=== PATIENT | female | born 1980 | race Caucasian/White ===

== ENCOUNTER 2017-03-29 09:47 | Outpatient (CLI) | payer OTHER ==
--- NOTE | 2017-03-29 12:13 | ULT ---
OBSTETRICAL ULTRASOUND: Date: 03-29-17 History: Evaluate size and dates. Technique: Multiplanar grayscale sonographic imaging of the gravid uterus obtained. FINDINGS: There is a single live intrauterine gestation demonstrating a breach presentation. Cervical length is 5.2 cm. The placenta is located anterior and demonstrates no evidence for previa or abruption. The urinary bladder, stomach, kidneys, four chamber heart, umbilical insertion, and umbilical c ord appear unremarkable. heart rate is 144 beats/minute. Region of the diaphragm appears within normal limits. spine and visualized portions of fe cricket extremities appear within normal limits. The facial structures could not be well assessed o n this examination secondary to positioning. Intracranial contents appear grossly unremarkable. Amniotic fluid index is 12.2 cm. biometry: BPD 4.8 cm 20 weeks 4 days HC 17.6 cm 20 weeks 1 day AC 15.7 cm 20 weeks 6 days FL 3.3 cm 20 weeks 2 days Average age based on ultrasound is 20 weeks 2 days with estimated date of delivery on 08-14-17. Estimated weight is 361 grams, +/- 53 grams. IMPRESSION: Single live intrauterine gestation as above. POS: [facility]
== END 2017-03-29 09:48 | disposition home or self-care (01) ==
LOC: ULT 09:47
PROVIDERS: ATTEND Family Medicine
DX: Z34.92 Encounter for supervision of normal pregnancy, unspecified, second trimester (principal); Z3A.20 20 weeks gestation of pregnancy
CPT/HCPCS: 76805

== ENCOUNTER 2017-08-09 08:27 | Inpatient (IN) | payer OTHER ==
[~2017-08-09 08:27] MED LIST: Dexamethasone 20 MG/5 ML VIAL ONE; Ondansetron HCl/PF 4 MG/2 ML Vial ONE; PHENYLEPHRINE-NS 100 MCG/ML 10 ML SYRINGE ONE; ePHEDrine/0.9% NaCl/PF SYRINGE 50 mg/10 ml ONE
[2017-08-09] MEDS ORDERED: Ondansetron HCl/PF 4 MG/2 ML Vial IVP PRN ×4 (10:23→13:23)
[2017-08-09] MEDS ORDERED: Promethazine HCl 25 MG/ML VIAL IM PRN ×3 (10:23→13:23)
[2017-08-09] MEDS ORDERED: CEFAZOLIN/Water 2 GM/20 ML SYRINGE SLOW IVP SCH ×2 (10:30→11:30)
[2017-08-09] MEDS ORDERED: Acetaminophen 325 MG TAB PO PRN (10:30)
[2017-08-09] MEDS ORDERED: Lactated Ringer's 1,000 ML IV SCH ×3 (10:30→11:30)
[2017-08-09] MEDS ORDERED: diphenhydrAMINE 25 MG CAP PO PRN (10:30)
[2017-08-09] MEDS ORDERED: Acetaminophen/Codeine 30-300mg Tablet PO PRN (10:30)
[2017-08-09] MEDS ORDERED: Lanolin Ointment 7 GM TUBE TOP PRN (10:30)
[2017-08-09] MEDS ORDERED: Bisacodyl 10 MG SUPP PR PRN (10:30)
[2017-08-09] MEDS ORDERED: Bicitra 30 ML UDCUP PO SCH ×2 (10:30→11:30)
[2017-08-09] MEDS ORDERED: HYDROcodone/Acetaminophen 5/325 mg Tablet PO PRN (10:30)
[2017-08-09 10:52] VITALS: BMI 37.3
[2017-08-09 12:31] LABS: Mean Corpuscular HGB CONC 31.9 g/dL (32.0-36.0); Mean Corpuscular Hemoglobin 27.6 pg (27.0-31.0); Mean Corpuscular Volume 86.6 fl (81.0-99.0); Mean Platelet Volume 9.4 fL (7.4-10.4); Platelet Count 283 thou/uL (130-400); RBC Distribution Width 12.3 % (11.5-14.5); Red Blood Cell (RBC) Count 4.33 mill/uL (4.20-5.40); White Blood Cell (WBC) Count 12.9 thou/uL (4.8-10.8)
[2017-08-09] MEDS ORDERED: Morphine PF 1 MG/ML SYR ONE (12:35)
[2017-08-09] MEDS ORDERED: Fentanyl 100 MCG/2 ML VIAL ONE (12:35)
[2017-08-09] MEDS ORDERED: ePHEDrine/0.9% NaCl/PF SYRINGE 50 mg/10 ml ONE (12:36)
[2017-08-09] MEDS ORDERED: Oxytocin 10 UNITS/ML VIAL ONE (12:36)
[2017-08-09] MEDS ORDERED: PHENYLEPHRINE-NS 100 MCG/ML 10 ML SYRINGE ONE (12:36)
[2017-08-09] MEDS ORDERED: Dexamethasone 4 mg/ml Vial ONE (12:36)
[2017-08-09] MEDS ORDERED: Ondansetron HCl/PF 4 MG/2 ML Vial ONE (12:36)
[2017-08-09] MEDS ORDERED: Lidocaine 1% PF 5 ML VIAL ONE (12:49)
[2017-08-09] MEDS ORDERED: Bupivacaine 0.75% W/DEXTROSE 8.25% 2 ML AMP ONE (12:49)
[2017-08-09] MEDS ORDERED: Naloxone HCl 0.4 mg/ml Vial IVP PRN ×2 (13:23)
[2017-08-09] MEDS ORDERED: Naloxone HCl 0.4 mg/ml Vial IV PRN (13:23)
[2017-08-09] MEDS ORDERED: Promethazine HCl 25 MG SUPP PR PRN (13:23)
[2017-08-09] MEDS ORDERED: diphenhydrAMINE 50 MG/ML VIAL IVP PRN (13:23)
[2017-08-09] MEDS ORDERED: Ketorolac Tromethamine 30 MG/ML VIAL IVP PRN (13:23)
[2017-08-09] MEDS ORDERED: Eucerin (Mineral Oil/Petrolatum,White) 30 gm Jar TOP PRN (13:23)
[2017-08-09] MEDS ORDERED: Morphine 4 MG/ML VIAL IV PRN (13:30)
[2017-08-09] MEDS ORDERED: Communication Order-Pharmacy FS SCH (13:30)
[2017-08-09 13:38] LABS: HBSAg Index 0.21 S/CO (0-0.99); Hep B Surf Ag Non-Reactive S/CO (NonReactive)
[2017-08-09 13:48] LABS: Syphilis Antibody Nonreactive (Nonreactive); Syphilis Antibody Index 0.04 S/CO (<1.00 Non-Reactive)
--- NOTE | 2017-08-09 14:06 | OP ---
DATE OF SURGERY: 08/09/2017 PREOPERATIVE DIAGNOSIS: Term intrauterine with previous section x2 and spontaneou s rupture of membranes. POSTOPERATIVE DIAGNOSES: Term intrauterine with previous section x2 and spontaneo us rupture of membranes, status post delivery. PROCEDURE: Repeat low transverse section. SURGEON: Luzma Hernandez M.D. DIABETES CLINICAL MANAGER: Yassine Shepard M.D. ANESTHESIA: Spinal anesthetic. COMPLICATIONS: None. PROCEDURE IN DETAIL: After adequate spinal anesthetic, the patient was placed in supine position. A wedge was placed under her right flank. A Contreras catheter was placed and the abdomen was prepped and draped in the usual sterile technique. A Pfannenstiel incision was made through the old scar. Subc utaneous tissue opened with sharp dissection. Fascia was opened with sharp dissection. Peritoneum o pened with sharp and blunt dissection. It was noted that the abdomen was filled with a gravid uterus . A large Pepe O retractor was placed and a bladder flap was incised inferiorly. A low transverse incision was made on the uterus. Membranes were ruptured. Clear fluid was encountered and a viable male infant was delivered from vertex presentation. Infant breathed and cried spontaneously. Cord was clamped and cut after approximately 30 seconds and infant handed to the care of the Neonat[facility]. The cord blood was obtained and the placenta was delivered manually and appeared intact. The h ysterotomy edges were grasped with ring forceps and an additional ring forceps was used to dilate the cervix. This ring forceps was then taken external to the sterile field. The hysterotomy was closed in continuous fashion using 0 Monocryl. Hemostasis appeared adequate. Few bleeders on the bladder flap were cauterized and the peritoneum was then closed in continuous fashion using 2-0 chromic. Fas efrain was then closed in continuous fashion using 0 Vicryl. Sponge and instrument counts were correct. A 2-0 plain was used to reapproximate the subcutaneous tissue and the skin was closed using alonzo . The patient tolerated the procedure well to go to the recovery room in good condition. Baby is a viable male , weight 8 pounds 3 ounces, Apgars 8 at 1 minute and 9 at 5 minutes, to go to level 1 nursery in good condition. ESTIMATED BLOOD LOSS: 400 mL.
[2017-08-09] MEDS ORDERED: Ketorolac Tromethamine 30 MG/ML VIAL ONE ×2 (15:19→15:21)
[2017-08-09] MEDS: Ketorolac Tromethamine 30 MG/ML VIAL IVP SCH ×2 (15:23→21:35)
[2017-08-09] MEDS: Lactated Ringer's 1,000 ML IV SCH ×2 (16:27→21:35)
[2017-08-09] MEDS: Ferrous Sulfate 325 MG TAB PO SCH (16:27)
[2017-08-09] MEDS: Ibuprofen 800 MG TAB PO SCH ×2 (16:27→22:40)
[2017-08-09] MEDS: Simethicone Chewable 80 MG TAB PO PRN (21:35)
[2017-08-09] MEDS: Docusate Calcium (SURFAK) 240 MG CAP PO SCH (21:35)
[2017-08-10] MEDS ORDERED: Acetaminophen/Codeine 30-300mg Tablet PO PRN (02:00)
[2017-08-10] MEDS: Ketorolac Tromethamine 30 MG/ML VIAL IVP SCH ×4 (03:08→19:23)
[2017-08-10] MEDS: Lactated Ringer's 1,000 ML IV SCH ×3 (04:55→17:37)
[2017-08-10] MEDS: Ibuprofen 800 MG TAB PO SCH ×2 (04:56→17:23)
[2017-08-10 06:00] LABS: Hemoglobin 9.5 g/dL (12.0-16.0); Mean Corpuscular HGB CONC 34.3 g/dL (32.0-36.0); Mean Corpuscular Hemoglobin 29.5 pg (27.0-31.0); Mean Corpuscular Volume 86.1 fl (81.0-99.0); Mean Platelet Volume 8.3 fL (7.4-10.4); Platelet Count 204 thou/uL (130-400); RBC Distribution Width 12.1 % (11.5-14.5); White Blood Cell (WBC) Count 14.4 thou/uL (4.8-10.8)
[2017-08-10] MEDS: Prenatal Vitamin 1 TAB PO SCH (09:33)
[2017-08-10] MEDS: Docusate Calcium (SURFAK) 240 MG CAP PO SCH ×2 (09:33→21:16)
[2017-08-10] MEDS: Ferrous Sulfate 325 MG TAB PO SCH ×2 (09:34→17:23)
[2017-08-10] MEDS: Simethicone Chewable 80 MG TAB PO PRN (21:16)
[2017-08-10] MEDS: HYDROcodone/Acetaminophen 5/325 mg Tablet PO PRN (23:46)
[2017-08-11] MEDS: Ibuprofen 800 MG TAB PO SCH ×2 (01:54→09:05)
[2017-08-11] MEDS: Ketorolac Tromethamine 30 MG/ML VIAL IVP SCH ×2 (01:55→08:27)
[2017-08-11] MEDS: Lactated Ringer's 1,000 ML IV SCH ×2 (05:55→11:05)
[2017-08-11] MEDS: HYDROcodone/Acetaminophen 5/325 mg Tablet PO PRN (08:45)
[2017-08-11] MEDS: Ferrous Sulfate 325 MG TAB PO SCH (08:46)
[2017-08-11] MEDS: Prenatal Vitamin 1 TAB PO SCH (08:46)
[2017-08-11] MEDS: Docusate Calcium (SURFAK) 240 MG CAP PO SCH (08:46)
[2017-08-11 09:24] VITALS: BP 142/69; TEMP 97.7
[2017-08-11] MEDS ORDERED: Ibuprofen 800 MG TAB PO SCH (10:00)
--- NOTE | 2017-08-11 13:42 | ADD-OP ---
DATE OF PROCEDURE: 08/09/2017 PRIMARY SURGEON: Dr. Luzma Hernandez. This documentation is that I was certified first assistant on a repeat for patient Eliana Bailon.
== END 2017-08-11 11:35 | disposition home or self-care (01) | DRG 766 ==
LOC: L&D/OP 08:27 → L&D 09:10 → 3SW 16:05
PROVIDERS: ADMIT Family Medicine; ATTEND Family Medicine
PROC: 10D00Z1 Extraction of Products of Conception, Low, Open Approach (ICD-10-PCS; principal; 2017-08-09)
DX: O34.211 Maternal care for low transverse scar from previous cesarean delivery (principal); Z3A.39 39 weeks gestation of pregnancy; Z37.0 Single live birth; O99.284 Endocrine, nutritional and metabolic diseases complicating childbirth; E03.9 Hypothyroidism, unspecified; Z79.899 Other long term (current) drug therapy; Z79.82 Long term (current) use of aspirin
CPT/HCPCS: 36415; 51702; 85027; 86780; 86850; 86900; 86901; 87340; 99285; A4216; J1100; J1885; J2001; J2270; J2274; J2405; J2590; J3010; J3490

== ENCOUNTER 2021-07-22 17:41 | Inpatient (IN) | payer OTHER, SELFPAY ==
[2021-07-22 17:50] LABS: #Eosinphils 0.2 thou/uL (0.0-0.7); #Monocytes 0.5 thou/uL (0.11-0.59); #Neutrophils 7.7 thou/uL (1.40-6.50); %Basophils 0.3 % (0.0-1.0); %Eosinophils 1.8 % (0.0-10.0); %Lymphocytes 19.4 % (21.0-51.0); %Monocytes 5.1 % (0.0-10.0); %Neutrophils 73.3 % (42.0-75.0); Mean Corpuscular HGB CONC 32.8 g/dL (32.0-36.0); Mean Corpuscular Hemoglobin 31.1 pg (27.0-31.0); Mean Corpuscular Volume 94.8 fL (78.0-98.0); Mean Platelet Volume 7.7 fL (7.4-10.4); Platelet Count 293 thou/uL (130-400); RBC Distribution Width 12.8 % (11.5-14.5); Red Blood Cell (RBC) Count 4.19 mill/uL (4.20-5.40); White Blood Cell (WBC) Count 10.5 thou/uL (4.8-10.8)
[2021-07-22 17:52] LABS: PTT 33.7 sec (22.9-36.1); Prothrombin Time 12.9 sec (12.0-14.7)
[2021-07-22 18:35] LABS: Sodium 136 mmol/L (136-145)
[2021-07-22 18:36] LABS: Carbon Dioxide 20 mmol/L (22-29); Chloride 106 mmol/L (98-107); Potassium 3.3 mmol/L (3.5-5.1)
[2021-07-22 18:37] LABS: Anion Gap 13 mmol/L (10-20); BUN (Urea Nitrogen) 13 mg/dL (7.0-18.7); Bilirubin, Total 0.6 mg/dL (0.2-1.2); Calc. Creatinine Clearance 0 mL/min (70-130); Glucose 120 mg/dL (70-105); Protein, Total 7.7 g/dL (6.0-8.3)
[2021-07-22 18:38] LABS: ALT (SGPT) 18 U/L (8-55); AST (SGOT) 21 U/L (5-34); Albumin 4.4 g/dL (3.5-5.0); Alkaline Phosphatase 67 U/L (40-110); Globulin 3.3 g/dL (2.4-3.5)
[2021-07-22] MEDS ORDERED: Aspirin Chewable 81 MG TAB ONE (18:42)
[2021-07-22 18:56] LABS: CK (CPK) 72 U/L (29-168)
[2021-07-22] MEDS ORDERED: methylPREDNISolone Sod Succ 1 GM in Sodium Chloride 0.9% 250 ML 250 ML IVPB SCH (19:00)
[2021-07-22] MEDS ORDERED: Ondansetron PF 4 MG/2 ML Vial IVP PRN (20:10)
[2021-07-22] MEDS ORDERED: Zolpidem Tartrate 5 MG TAB PO PRN (20:10)
[2021-07-22] MEDS ORDERED: HYDROcodone/Acetaminophen 5/325 mg Tablet PO PRN (20:10)
[2021-07-22] MEDS ORDERED: Potassium Chloride 20 MEQ TAB PO SCH (21:45)
[2021-07-22 22:06] VITALS: BMI 34.8
[2021-07-22] MEDS: methylPREDNISolone Sod Succ/PF 125 MG/2 ML VIAL IVP SCH (23:28)
[2021-07-22] MEDS: Potassium Chloride 20 MEQ in Lactated Ringer's 1,000 ML IV SCH (23:28)
[2021-07-23 00:35] LABS: Bacteria/HPF None Seen HPF (None Seen); Bilirubin Negative (Negative); Blood, Urine Trace (Negative); Clarity Clear (Clear); Glucose, Urine (Dipstick) 200 mg/dL (Negative); Ketone, Urine 20 mg/dL (Negative); Leukocyte Negative Leu/uL (Negative); Nitrite Negative (Negative); Protein, Urine (Dipstick) Negative (Neg-Trace); Specific Gravity, Urine 1.034 (1.002-1.036); Squamous Epithelial 0-3 HPF (0-3); Urobilinogen Normal mg/dL (Less than 2); WBC/HPF 0-3 HPF (0-3)
[2021-07-23 04:37] LABS: #Lymphocytes 0.8 thou/uL (1.20-3.40); #Neutrophils 7.6 thou/uL (1.40-6.50); %Basophils 0.2 % (0.0-1.0); %Eosinophils 0.2 % (0.0-10.0); %Lymphocytes 9.4 % (21.0-51.0); %Monocytes 0.5 % (0.0-10.0); %Neutrophils 89.8 % (42.0-75.0); Hemoglobin 13.6 g/dL (12.0-16.0); Mean Corpuscular HGB CONC 32.9 g/dL (32.0-36.0); Mean Corpuscular Hemoglobin 31.4 pg (27.0-31.0); Mean Corpuscular Volume 95.3 fL (78.0-98.0); Mean Platelet Volume 7.6 fL (7.4-10.4); Platelet Count 314 thou/uL (130-400); RBC Distribution Width 12.7 % (11.5-14.5); Red Blood Cell (RBC) Count 4.34 mill/uL (4.20-5.40); White Blood Cell (WBC) Count 8.5 thou/uL (4.8-10.8)
[2021-07-23 04:48] LABS: ALT (SGPT) 19 U/L (8-55); AST (SGOT) 16 U/L (5-34); Albumin 4.3 g/dL (3.5-5.0); Alkaline Phosphatase 70 U/L (40-110); Anion Gap 12 mmol/L (10-20); BUN (Urea Nitrogen) 10 mg/dL (7.0-18.7); Bilirubin, Total 0.7 mg/dL (0.2-1.2); Calc. Creatinine Clearance 190 mL/min (70-130); Carbon Dioxide 22 mmol/L (22-29); Chloride 106 mmol/L (98-107); Globulin 3.4 g/dL (2.4-3.5); Glucose 176 mg/dL (70-105); Potassium 3.7 mmol/L (3.5-5.1); Protein, Total 7.7 g/dL (6.0-8.3); Sodium 136 mmol/L (136-145)
[2021-07-23] MEDS: methylPREDNISolone Sod Succ/PF 125 MG/2 ML VIAL IVP SCH ×2 (05:43→13:43)
[2021-07-23] MEDS: Enoxaparin Sodium 40 MG/0.4 ML SYRINGE SC SCH (10:02)
[2021-07-23] MEDS ORDERED: SODIUM CHLORIDE 0.9% IVPB SCH (12:15)
[2021-07-23] MEDS ORDERED: METHYLPREDNISOLONE SOD SUCC IVPB SCH (12:15)
[2021-07-23 12:36] LABS: ANA Symphony (Qualitative) Negative (Negative); ANA Symphony (Quantitative) 0.2 Ratio (< 0.7 Negative); EliA RAS New Method **** NEW METHOD ****; dsDNA IgG Antibody 2.1 IU/mL (<10 Negative)
[2021-07-23] MEDS: Potassium Chloride 20 MEQ in Lactated Ringer's 1,000 ML IV SCH (16:01)
[2021-07-23 16:37] LABS: SARS-CoV-2 PCR by NAA Not Detected (NotDetected)
[2021-07-23 17:24] LABS: BHCG - Serum Negative (NEGATIVE); Pregs Control Background? CLEAR/WHITE (CLR/WHITE); Pregs Control Bar Appear? YES (CONTROL BAR)
[2021-07-23] MEDS: Acetaminophen 325 MG TAB PO PRN (20:54)
[2021-07-24 04:36] LABS: Anion Gap 11 mmol/L (10-20); BUN (Urea Nitrogen) 11 mg/dL (7.0-18.7); Calc. Creatinine Clearance 190 mL/min (70-130); Calcium 8.7 mg/dL (7.8-10.44); Carbon Dioxide 24 mmol/L (22-29); Cardiac Risk 3.1 (Less than 4.5); Chloride 109 mmol/L (98-107); Cholesterol 165 mg/dl (< 200 Desired); Glucose 221 mg/dL (70-105); HDL Cholesterol 53 mg/dL (>60 Neg Risk); LDL Cholesterol, Calculated 97 mg/dL; Potassium 4.1 mmol/L (3.5-5.1); Sodium 140 mmol/L (136-145); Triglycerides 74 mg/dL (Less than 150)
[2021-07-24 04:55] LABS: Hemoglobin A1c 5.3 % (4.0-6.0)
[2021-07-24] MEDS: Potassium Chloride 20 MEQ in Lactated Ringer's 1,000 ML IV SCH ×2 (05:44→15:55)
[2021-07-24 07:29] LABS: Hemoglobin 12.4 g/dL (12.0-16.0); Mean Corpuscular HGB CONC 31.3 g/dL (32.0-36.0); Mean Corpuscular Hemoglobin 31.7 pg (27.0-31.0); Mean Platelet Volume 7.7 fL (7.4-10.4); Platelet Count 288 thou/uL (130-400); RBC Distribution Width 13.1 % (11.5-14.5); Red Blood Cell (RBC) Count 3.91 mill/uL (4.20-5.40); White Blood Cell (WBC) Count 21.3 thou/uL (4.8-10.8)
[2021-07-24 07:30] LABS: Band 4 % (5-11); Hypochromia SLIGHT = 6-15 cells (100X) (0-5/hpf); Lymphocytes 6 % (21-51); MDiff Complete? YES; Macrocytosis MODERATE=16-30 cells (100X) (0-5/hpf); Monocytes 3 % (0-10); Neutrophil 87 % (42-75); Ovalocytes SLIGHT = 2-5 cells (100X) (0-1/hpf); Platelet Morphology Comment Appears Adequate; Polychromasia SLIGHT = 2-3 cells (100X) (0-2/hpf)
[2021-07-24] MEDS ORDERED: methylPREDNISolone Sod Succ 1 GM in Sodium Chloride 0.9% 250 ML 250 ML IVPB SCH (09:00)
[2021-07-24] MEDS ORDERED: Aspirin 81 mg Enteric Coated Tablet PO SCH (09:00)
[2021-07-24] MEDS: Enoxaparin Sodium 40 MG/0.4 ML SYRINGE SC SCH (09:09)
[2021-07-24] MEDS: Acetaminophen 325 MG TAB PO PRN (09:16)
[2021-07-24 15:50] VITALS: BP 116/58; TEMP 98.4
== END 2021-07-24 15:55 | disposition home or self-care (01) | DRG 103 ==
LOC: ERS 17:41 → 2NO 20:47 → OBSVTOIN 07-23 15:30
PROVIDERS: ADMIT Internal Medicine; ATTEND Internal Medicine
DX: I67.7 Cerebral arteritis, not elsewhere classified (principal); G45.9 Transient cerebral ischemic attack, unspecified; Z20.822 Contact with and (suspected) exposure to COVID-19; L40.50 Arthropathic psoriasis, unspecified; K21.9 Gastro-esophageal reflux disease without esophagitis; E87.6 Hypokalemia; Z79.890 Hormone replacement therapy; Z79.82 Long term (current) use of aspirin; Z79.899 Other long term (current) drug therapy
CPT/HCPCS: 36415; 70450; 70496; 70498; 70553; 80048; 80053; 80061; 81003; 81015; 82550; 83036; 83520; 83735; 84443; 84484; 84703; 85025; 85610; 85730; 86038; 86225; 93005; 93306; J1650; J2930; J3480; J7050; J7120; U0003; U0005

== ENCOUNTER 2021-07-27 08:16 | Inpatient (IN) | payer SELFPAY ==
[2021-07-27 08:43] LABS: #Basophils 0.1 thou/uL (0.0-0.2); #Eosinphils 0.2 thou/uL (0.0-0.7); #Lymphocytes 2.5 thou/uL (1.20-3.40); #Monocytes 0.6 thou/uL (0.11-0.59); #Neutrophils 6.1 thou/uL (1.40-6.50); %Basophils 0.9 % (0.0-1.0); %Eosinophils 1.9 % (0.0-10.0); %Lymphocytes 26.5 % (21.0-51.0); %Monocytes 6.6 % (0.0-10.0); %Neutrophils 64.1 % (42.0-75.0); Hemoglobin 13.6 g/dL (12.0-16.0); Mean Corpuscular HGB CONC 32.7 g/dL (32.0-36.0); Mean Corpuscular Hemoglobin 30.9 pg (27.0-31.0); Mean Corpuscular Volume 94.5 fL (78.0-98.0); Mean Platelet Volume 7.5 fL (7.4-10.4); Platelet Count 315 thou/uL (130-400); RBC Distribution Width 12.8 % (11.5-14.5); Red Blood Cell (RBC) Count 4.41 mill/uL (4.20-5.40); White Blood Cell (WBC) Count 9.6 thou/uL (4.8-10.8)
[2021-07-27 08:51] LABS: BHCG - Serum Negative (NEGATIVE); Pregs Control Background? CLEAR/WHITE (CLR/WHITE); Pregs Control Bar Appear? YES (CONTROL BAR)
[2021-07-27 09:06] LABS: ALT (SGPT) 99 U/L (8-55); AST (SGOT) 27 U/L (5-34); Albumin 4.3 g/dL (3.5-5.0); Alkaline Phosphatase 72 U/L (40-110); Anion Gap 11 mmol/L (10-20); BUN (Urea Nitrogen) 10 mg/dL (7.0-18.7); Bilirubin, Total 1.5 mg/dL (0.2-1.2); Calc. Creatinine Clearance 0 mL/min (70-130); Calcium 9.1 mg/dL (7.8-10.44); Carbon Dioxide 29 mmol/L (22-29); Chloride 103 mmol/L (98-107); Globulin 3.1 g/dL (2.4-3.5); Glucose 91 mg/dL (70-105); Potassium 3.2 mmol/L (3.5-5.1); Protein, Total 7.4 g/dL (6.0-8.3); Sodium 140 mmol/L (136-145)
[2021-07-27] MEDS ORDERED: methylPREDNISolone Sod Succ/PF 125 MG/2 ML VIAL ONE (10:47)
[2021-07-27] MEDS ORDERED: Calcium Carbonate 500 MG ChewTAB PO PRN (11:23)
[2021-07-27] MEDS ORDERED: HYDROcodone/Acetaminophen 5/325 mg Tablet PO PRN (11:23)
[2021-07-27] MEDS ORDERED: Potassium Chloride 20 MEQ TAB PO SCH (12:00)
[2021-07-27] MEDS: Acetaminophen 325 MG TAB PO PRN (13:29)
[2021-07-27 13:42] VITALS: BMI 35.2
[2021-07-27 18:10] LABS: SARS-CoV-2 NAA Rapid Test Not Detected (NotDetected)
[2021-07-27] MEDS: Famotidine 20 MG TAB PO SCH (20:41)
[2021-07-28 05:13] LABS: #Lymphocytes 2.3 thou/uL (1.20-3.40); #Monocytes 0.8 thou/uL (0.11-0.59); #Neutrophils 13.6 thou/uL (1.40-6.50); %Eosinophils 0.2 % (0.0-10.0); %Lymphocytes 13.9 % (21.0-51.0); %Monocytes 4.7 % (0.0-10.0); %Neutrophils 81.3 % (42.0-75.0); Hemoglobin 13.1 g/dL (12.0-16.0); Mean Corpuscular HGB CONC 32.8 g/dL (32.0-36.0); Mean Corpuscular Hemoglobin 31.5 pg (27.0-31.0); Mean Corpuscular Volume 95.9 fL (78.0-98.0); Mean Platelet Volume 7.7 fL (7.4-10.4); Platelet Count 317 thou/uL (130-400); RBC Distribution Width 12.6 % (11.5-14.5); Red Blood Cell (RBC) Count 4.16 mill/uL (4.20-5.40); White Blood Cell (WBC) Count 16.7 thou/uL (4.8-10.8)
[2021-07-28 05:35] LABS: CK (CPK) 17 U/L (29-168); CRP (Inflammatory) Less than 0.50 mg/dL (= or < 0.5); Cardiac Risk 2.5 (Less than 4.5); Cholesterol 122 mg/dl (< 200 Desired); HDL Cholesterol 49 mg/dL (>60 Neg Risk); LDL Cholesterol, Calculated 61 mg/dL; Triglycerides 60 mg/dL (Less than 150)
[2021-07-28 05:36] LABS: ALT (SGPT) 68 U/L (8-55); AST (SGOT) 15 U/L (5-34); Albumin 3.9 g/dL (3.5-5.0); Alkaline Phosphatase 63 U/L (40-110); Anion Gap 12 mmol/L (10-20); BUN (Urea Nitrogen) 11 mg/dL (7.0-18.7); Bilirubin, Total 0.9 mg/dL (0.2-1.2); Calc. Creatinine Clearance 196 mL/min (70-130); Calcium 8.9 mg/dL (7.8-10.44); Carbon Dioxide 24 mmol/L (22-29); Chloride 104 mmol/L (98-107); Globulin 2.9 g/dL (2.4-3.5); Glucose 127 mg/dL (70-105); Potassium 4.4 mmol/L (3.5-5.1); Protein, Total 6.8 g/dL (6.0-8.3); Sodium 136 mmol/L (136-145)
[2021-07-28 06:01] LABS: Thyroid Stimulating Hormone 1.4424 uIU/mL (0.35-4.94)
[2021-07-28] MEDS: Famotidine 20 MG TAB PO SCH ×2 (08:37→20:13)
[2021-07-28] MEDS: predniSONE 20 MG TAB PO SCH (08:37)
[2021-07-28] MEDS ORDERED: Aspirin Chewable 81 MG TAB PO SCH (11:30)
[2021-07-28] MEDS ORDERED: Atorvastatin Calcium 40 MG TAB PO SCH (21:00)
[2021-07-29] MEDS: Famotidine 20 MG TAB PO SCH (08:46)
[2021-07-29] MEDS: predniSONE 20 MG TAB PO SCH (08:46)
[2021-07-29] MEDS: Acetaminophen 325 MG TAB PO PRN (08:51)
[2021-07-29] MEDS ORDERED: Folic Acid 1 MG TAB PO SCH (09:00)
[2021-07-29] MEDS ORDERED: Aspirin Chewable 81 MG TAB PO SCH (09:00)
[2021-07-29] MEDS ORDERED: Aspirin 81 mg Enteric Coated Tablet PO SCH (09:00)
[2021-07-29 11:26] VITALS: TEMP 97.6
[2021-07-29] MEDS ORDERED: Gabapentin 100 MG CAP PO SCH ×2 (11:45→21:00)
[2021-07-29 11:52] VITALS: BP 107/72
[2021-07-29] MEDS ORDERED: Atorvastatin Calcium 40 MG TAB PO SCH (21:00)
== END 2021-07-29 14:14 | disposition home or self-care (01) | DRG 552 ==
LOC: ERS 08:16 → NEURO 13:09 → OBSVTOIN 07-28 16:20
PROVIDERS: ADMIT Internal Medicine; ATTEND Internal Medicine
DX: M50.022 Cervical disc disorder at C5-C6 level with myelopathy (principal); Z20.822 Contact with and (suspected) exposure to COVID-19; M06.9 Rheumatoid arthritis, unspecified; E87.6 Hypokalemia; Z79.899 Other long term (current) drug therapy; Z79.82 Long term (current) use of aspirin; Z82.61 Family history of arthritis
CPT/HCPCS: 36415; 36416; 70450; 72141; 80053; 80061; 82550; 82607; 82746; 84443; 84484; 84703; 85025; 85652; 86140; 93005; 96374; G0378; J2930; J7512; U0002

== ENCOUNTER 2022-09-10 09:24 | Outpatient (CLI) | payer OTHER | END 2022-09-10 09:25 | disposition home or self-care (01) | LOC: BICMAMMO 09:24 | PROVIDERS: ATTEND Family Medicine | DX: Z12.31 Encounter for screening mammogram for malignant neoplasm of breast (principal); N64.89 Other specified disorders of breast; Z80.3 Family history of malignant neoplasm of breast | CPT/HCPCS: 77063; 77067 ==

== ENCOUNTER 2022-11-21 08:18 | Emergency (ER) | payer SELFPAY ==
[2022-11-21 08:53] LABS: #Eosinphils 0.1 thou/uL (0.0-0.7); #Monocytes 0.9 thou/uL (0.11-0.59); #Neutrophils 14.6 thou/uL (1.40-6.50); %Basophils 0.2 % (0.0-1.0); %Eosinophils 0.4 % (0.0-10.0); %Lymphocytes 6.6 % (21.0-51.0); %Monocytes 5.6 % (0.0-10.0); %Neutrophils 86.8 % (42.0-75.0); Hematocrit 36.5 % (36.0-47.0); Hemoglobin 12.2 g/dL (12.0-16.0); Mean Corpuscular HGB CONC 33.4 g/dL (32.0-36.0); Mean Corpuscular Volume 89.9 fl (78.0-98.0); Mean Platelet Volume 9.9 fL (7.4-10.4); Platelet Count 344 10x3/uL (130-400); RBC Distribution Width 13.3 % (11.5-14.5); Red Blood Cell (RBC) Count 4.06 mill/uL (4.20-5.40); White Blood Cell (WBC) Count 16.8 10x3/uL (4.8-10.8)
[2022-11-21 09:01] LABS: BHCG - Serum Negative (NEGATIVE); Pregs Control Background? CLEAR/WHITE (CLR/WHITE); Pregs Control Bar Appear? YES (CONTROL BAR)
[2022-11-21 09:02] LABS: Bacteria/HPF None Seen HPF (None Seen); Bilirubin Negative (Negative); Blood, Urine Negative (Negative); CAUTI Indications for Culture Pelvic or flank pain; Clarity Clear (Clear); Glucose, Urine (Dipstick) Normal (Negative); Ketone, Urine 10 mg/dL (Negative); Leukocyte Negative Leu/uL (Negative); Nitrite Negative (Negative); Protein, Urine (Dipstick) Negative (Neg-Trace); RBC/HPF 0-3 HPF (0-3); Specific Gravity, Urine 1.012 (1.002-1.036); Squamous Epithelial 0-3 HPF (0-3); Urobilinogen Normal mg/dL (Less than 2); WBC/HPF 0-3 HPF (0-3)
[2022-11-21 09:04] LABS: Urine Culture Reflex No No
[2022-11-21 09:18] LABS: ALT (SGPT) 29 U/L (8-55); AST (SGOT) 18 U/L (5-34); Albumin 3.9 g/dL (3.5-5.0); Alkaline Phosphatase 86 U/L (40-110); Anion Gap 14 mmol/L (10-20); BUN (Urea Nitrogen) 6 mg/dL (7.0-18.7); Bilirubin, Total 0.9 mg/dL (0.2-1.2); Calc. Creatinine Clearance 0 mL/min (70-130); Calcium 9.3 mg/dL (7.8-10.44); Carbon Dioxide 22 mmol/L (22-29); Chloride 105 mmol/L (98-107); Estimated GFR 109; Globulin 3.4 g/dL (2.4-3.5); Glucose 102 mg/dL (70-105); Lipase 10 U/L (8-78); Potassium 3.6 mmol/L (3.5-5.1); Protein, Total 7.3 g/dL (6.0-8.3); Sodium 137 mmol/L (136-145)
[2022-11-21] MEDS ORDERED: Iopamidol-370 76% 500 ML MDV (1 ML CHARGE) ONE (11:47)
== END 2022-11-21 12:06 | disposition home or self-care (01) ==
LOC: ERS 08:18
DX: K57.92 Diverticulitis of intestine, part unspecified, without perforation or abscess without bleeding (principal)
CPT/HCPCS: 74177; 80053; 81001; 83690; 84703; 85025; 93005; Q9967

== ENCOUNTER 2022-12-27 10:03 | Outpatient (CLI) | payer OTHER | END 2022-12-27 10:04 | disposition home or self-care (01) | LOC: ULT 10:03 | PROVIDERS: ATTEND Family Medicine | DX: N94.89 Other specified conditions associated with female genital organs and menstrual cycle (principal); N83.201 Unspecified ovarian cyst, right side; N83.202 Unspecified ovarian cyst, left side | CPT/HCPCS: 76856 ==